=== PATIENT | female | born 1965 | race Two or more races ===

== ENCOUNTER 2018-01-29 18:37 | Inpatient (IN) | payer MEDICARE, OTHER ==
[~2018-01-29] VITALS: Ht 154.9 cm; Wt 104.5 kg
[~2018-01-29 18:37] MED LIST: ALBU18HF2 INH; ASPI-611 PO; ERGO500014 PO; FURO-150 PO; GLU850T PO; HYDR-4383 PO; POTA8CAP9 PO
[2018-01-29 19:07] LABS: BASOPHILS % (AUTO) 0 % (0-1); EOSINOPHILS # (AUTO) 0.1 X10'3 (0-0.9); EOSINOPHILS % (AUTO) 1.4 % (0-6); HEMATOCRIT 41.3 % (35.0-45.0); HEMOGLOBIN 13.8 g/dl (12.0-16.0); LYMPHOCYTES % (AUTO) 14.1 % (21-51); MEAN CORPUSCULAR HEMOGLOBIN 30.5 PG (27.0-31.0); MEAN CORPUSCULAR HGB CONC 33.5 % (33.0-36.5); MEAN PLATELET VOLUME 8.9 FL (7.4-10.4); MONOCYTES # (AUTO) 0.4 X10'3 (0-0.9); MONOCYTES % (AUTO) 6.4 % (2-12); NEUTROPHILS # (AUTO) 5.5 X10'3 (1.8-7.7); NEUTROPHILS % (AUTO) 78.1 % (42-75); PLATELET COUNT 239 X10'3 (140-440); RED BLOOD COUNT 4.54 X10'6 (4.20-5.60); RED CELL DISTRIBUTION WIDTH 13.1 % (11.5-14.5)
[2018-01-29] MEDS ORDERED: PER5325T PO (19:07)
[2018-01-29 19:23] LABS: ALANINE AMINOTRANSFERASE 58 U/L (12-78); ALBUMIN 3.1 G/DL (3.4-5.0); ALBUMIN/GLOBULIN RATIO 0.9 (1.1-1.5); ALKALINE PHOSPHATASE 134 IU/L (46-116); ANION GAP 8 (8-16); ASPARTATE AMINO TRANSFERASE 22 U/L (10-37); BILIRUBIN,TOTAL 0.4 MG/DL (0.1-1.0); BLOOD UREA NITROGEN 11 MG/DL (7-18); BUN/CREATININE RATIO 14.5 (6.6-38.0); CALCIUM 8.8 MG/DL (8.5-10.1); CHLORIDE 102 MMOL/L (99-107); CREATININE 0.76 MG/DL (0.40-0.90); GLUCOSE 445 MG/DL (70-104); POTASSIUM 3.9 MMOL/L (3.5-5.1); SODIUM 137 MMOL/L (135-145); TOTAL CARBON DIOXIDE 27.4 MMOL/L (24-32); TOTAL PROTEIN 6.7 G/DL (6.4-8.2); eGFR 79 ML/MIN
[2018-01-29 19:27] LABS: PROTHROMBIN TIME 10.9 SECONDS (9.0-12.0)
[2018-01-29 19:28] LABS: INR 1.1 INR; PARTIAL THROMBOPLASTIN TIME 25 SECONDS (22-32)
[2018-01-29] MEDS ORDERED: insulin regular, human 10 units/0.1 ml syringe IV ONE (20:15)
[2018-01-29] MEDS ORDERED: normal saline 1000ML IV soln IVB ONE (20:20)
[2018-01-29] MEDS ORDERED: LORazepam 1 MG tablet PO ONE (20:20)
[2018-01-29] MEDS ORDERED: iohexol 350MG/ML 100ml bottle IV ONE (20:38)
[2018-01-29] MEDS ORDERED: furosemide 10 MG/1 ML 10ml inj IV ONE (21:30)
[2018-01-29] MEDS ORDERED: HYDROcodone/acetaminophen 10/325mg tab PO PRN (21:55)
[2018-01-29] MEDS ORDERED: ondansetron/PF 4mg/2ml inj IV PRN (21:55)
[2018-01-29] MEDS ORDERED: acetaminophen 325mg tablet PO PRN (21:55)
[2018-01-29] MEDS ORDERED: dextrose 50%-water 50ml dispensing syringe IV PRN ×2 (21:55)
[2018-01-29] MEDS ORDERED: dextrose ORAL solution 15 GM/59 ML bottle PO PRN ×2 (21:55)
[2018-01-29] MEDS ORDERED: MESSAGE TO PHARMACY PO ONE (21:55)
[2018-01-29] MEDS ORDERED: glucagon, human recombinant 1mg kit SUBCUT PRN (21:55)
[2018-01-29] MEDS ORDERED: magnesium hydroxide 30ml (MOM) UD suspension PO PRN (21:55)
[2018-01-29] MEDS ORDERED: HYDROcodone/acetaminophen 5mg/325mg tablet PO PRN (21:55)
[2018-01-29] MEDS ORDERED: mag hydrox/Alum hydrox/simeth 30ml oral suspension PO PRN (21:55)
[2018-01-29] MEDS ORDERED: albuterol 2.5 MG/3 ML nebule NEB PRN (22:00)
[2018-01-29] MEDS ORDERED: oxyCODONE/APAP 5-325mg tablet PO PRN (22:00)
[2018-01-29 22:24] LABS: HEMOGLOBIN A1C 11.7 % (4.5-6.2)
[2018-01-29 23:00] VITALS: BP 119/82
[2018-01-30] MEDS: furosemide 10 MG/1 ML 10ml inj IV SCH ×2 (00:09→08:23)
[2018-01-30] MEDS ORDERED: pneumococcal 23-VAL P-sac vacc 25 mcg/0.5ml vial IMVAC ONE ×2 (00:55→11:00)
[2018-01-30 02:37] LABS: BASOPHILS % (AUTO) 0.1 % (0-1); EOSINOPHILS # (AUTO) 0.1 X10'3 (0-0.9); EOSINOPHILS % (AUTO) 1.6 % (0-6); HEMATOCRIT 42.5 % (35.0-45.0); LYMPHOCYTES # (AUTO) 0.9 X10'3 (1.1-4.8); LYMPHOCYTES % (AUTO) 10.3 % (21-51); MEAN CORPUSCULAR HEMOGLOBIN 30.4 PG (27.0-31.0); MEAN PLATELET VOLUME 9.1 FL (7.4-10.4); MONOCYTES # (AUTO) 0.3 X10'3 (0-0.9); MONOCYTES % (AUTO) 3.9 % (2-12); NEUTROPHILS # (AUTO) 7.2 X10'3 (1.8-7.7); NEUTROPHILS % (AUTO) 84.1 % (42-75); PLATELET COUNT 215 X10'3 (140-440); RED BLOOD COUNT 4.61 X10'6 (4.20-5.60); RED CELL DISTRIBUTION WIDTH 13.1 % (11.5-14.5); WHITE BLOOD COUNT 8.5 X10'3 (4.5-11.0)
[2018-01-30 02:59] LABS: ALANINE AMINOTRANSFERASE 68 U/L (12-78); ALBUMIN 3.4 G/DL (3.4-5.0); ALBUMIN/GLOBULIN RATIO 0.9 (1.1-1.5); ALKALINE PHOSPHATASE 138 IU/L (46-116); ANION GAP 8 (8-16); ASPARTATE AMINO TRANSFERASE 34 U/L (10-37); BILIRUBIN,TOTAL 0.4 MG/DL (0.1-1.0); BLOOD UREA NITROGEN 11 MG/DL (7-18); BUN/CREATININE RATIO 12.6 (6.6-38.0); CHLORIDE 99 MMOL/L (99-107); CREATININE 0.87 MG/DL (0.40-0.90); GLUCOSE 346 MG/DL (70-104); POTASSIUM 3.7 MMOL/L (3.5-5.1); SODIUM 138 MMOL/L (135-145); TOTAL CARBON DIOXIDE 30.6 MMOL/L (24-32); eGFR 68 ML/MIN
[2018-01-30] MEDS ORDERED: insulin Lispro (HumaLOG) vial - multi-dose SQ ONE (03:15)
[2018-01-30 07:00] VITALS: BP 119/74
[2018-01-30 07:47] VITALS: BP 112/71
[2018-01-30] MEDS ORDERED: lisinopril 2.5mg tablet PO SCH (08:00)
[2018-01-30] MEDS ORDERED: aspirin 81mg tablet.DR PO SCH (08:00)
[2018-01-30] MEDS ORDERED: heparin, porcine 5000 units/ml vial SQ SCH (08:00)
[2018-01-30] MEDS ORDERED: carvedilol 6.25mg tablet PO SCH (08:00)
[2018-01-30] MEDS: insulin Lispro (HumaLOG) vial - multi-dose SQ SCH ×2 (09:28→12:59)
[2018-01-30 09:32] LABS: URINE AMPHETAMINE SCREEN NEGATIVE (Neg); URINE BARBITUATE SCREEN NEGATIVE (Neg); URINE BENZODIAZEPINES SCREEN NEGATIVE (Neg); URINE CANNABINOID SCREEN NEGATIVE (Neg); URINE COCAINE SCREEN NEGATIVE (Neg); URINE METHADONE SCREEN NEGATIVE (Neg); URINE OPIATE SCREEN NEGATIVE (Neg); URINE PHENCYCLIDINE SCREEN NEGATIVE (Neg)
[2018-01-30] MEDS ORDERED: FLU VACC QUAD 2018(5 YR UP)/PF 60 MCG/0.5 ML SYRINGE IM ONE (10:00)
[2018-01-30] MEDS ORDERED: LISI2.5T2 PO (10:44)
[2018-01-30] MEDS ORDERED: CARV6.253 PO (10:44)
[2018-01-30] MEDS ORDERED: METF-950 PO (10:44)
[2018-01-30 11:00] VITALS: BP 94/48
[2018-01-30 12:47] VITALS: BP 113/72
[2018-01-30] MEDS ORDERED: insulin glargine (Lantus) pen - multi-dose SQ SCH (21:00)
== END 2018-01-30 13:18 | disposition home or self-care (01) | DRG 291 ==
LOC: ER 18:38 → ED HOLD 21:51 → EDBEDREQ 22:14 → SUR 3N 22:34
PROVIDERS: ADMIT Internal Medicine; ATTEND Internal Medicine
PROC: B32T1ZZ Computerized Tomography (CT Scan) of Left Pulmonary Artery using Low Osmolar Contrast (ICD-10-PCS; principal; 2018-01-29)
PROC: B3201ZZ Computerized Tomography (CT Scan) of Thoracic Aorta using Low Osmolar Contrast (ICD-10-PCS; 2018-01-29)
PROC: B32S1ZZ Computerized Tomography (CT Scan) of Right Pulmonary Artery using Low Osmolar Contrast (ICD-10-PCS; 2018-01-29)
PROC: 3E02340 Introduction of Influenza Vaccine into Muscle, Percutaneous Approach (ICD-10-PCS; 2018-01-30)
PROC: 3E0234Z Introduction of Serum, Toxoid and Vaccine into Muscle, Percutaneous Approach (ICD-10-PCS; 2018-01-30)
DX: I50.23 Acute on chronic systolic (congestive) heart failure (principal); J96.01 Acute respiratory failure with hypoxia; J98.11 Atelectasis; E11.65 Type 2 diabetes mellitus with hyperglycemia; I48.91 Unspecified atrial fibrillation; G47.30 Sleep apnea, unspecified; M54.9 Dorsalgia, unspecified; G89.4 Chronic pain syndrome; I25.10 Atherosclerotic heart disease of native coronary artery without angina pectoris; I25.5 Ischemic cardiomyopathy; Z90.710 Acquired absence of both cervix and uterus; Z23 Encounter for immunization; Z91.14 Patient's other noncompliance with medication regimen; Z88.8 Allergy status to other drugs, medicaments and biological substances; Z79.899 Other long term (current) drug therapy; Z79.82 Long term (current) use of aspirin
CPT/HCPCS: 36415; 71045; 80053; 80305; 82948; 83036; 83880; 84484; 85025; 85610; 85730; 87070; 90732; 93005; 93306; 96361; 96374; 96375; 99285; G0378; J1644; J1815; J1940; Q2037; Q9967

== ENCOUNTER 2018-05-08 07:10 | Inpatient (IN) | payer MEDICARE, OTHER | END 2018-05-12 13:40 | disposition home or self-care (01) | LOC: ER 07:10 → ED HOLD 10:14 → PCU 3S 17:43 | DX: L03.116 Cellulitis of left lower limb (principal); I50.23 Acute on chronic systolic (congestive) heart failure; J18.9 Pneumonia, unspecified organism; L03.115 Cellulitis of right lower limb; F15.10 Other stimulant abuse, uncomplicated ==

== ENCOUNTER 2018-05-25 06:14 | Emergency (ER) | payer MEDICARE, OTHER ==
[~2018-05-25] VITALS: Ht 154.9 cm; Wt 94.5 kg
[~2018-05-25 06:14] MED LIST changes: +COR3.125T PO; -ERGO500014 PO; -FURO-150 PO; +FURO40TA4 PO; +GABA-532 PO; -GLU850T PO; -HYDR-4383 PO; +LOSA50TA3 PO; +METF-951 PO; +PER5325T PO; +POTA20TA19 PO; -POTA8CAP9 PO; +SPIR25TA5 PO; +TRAM50TA2 PO
[2018-05-25] MEDS ORDERED: carvedilol 6.25mg tablet PO ONE (06:55)
[2018-05-25] MEDS ORDERED: carvedilol 6.25mg tablet PO SCH (06:55)
[2018-05-25 07:03] LABS: BASOPHILS # (AUTO) 0.1 X10'3 (0-0.2); BASOPHILS % (AUTO) 1.1 % (0-1); EOSINOPHILS # (AUTO) 0.2 X10'3 (0-0.9); EOSINOPHILS % (AUTO) 4.1 % (0-6); HEMATOCRIT 46.9 % (35.0-45.0); HEMOGLOBIN 15.7 g/dl (12.0-16.0); LYMPHOCYTES # (AUTO) 1.4 X10'3 (1.1-4.8); MEAN CORPUSCULAR HEMOGLOBIN 30.3 PG (27.0-31.0); MEAN CORPUSCULAR HGB CONC 33.4 g/dL (33.0-36.5); MEAN CORPUSCULAR VOLUME 90.6 FL (78-98); MEAN PLATELET VOLUME 8.6 FL (7.4-10.4); MONOCYTES # (AUTO) 0.4 X10'3 (0-0.9); MONOCYTES % (AUTO) 8.4 % (2-12); NEUTROPHILS # (AUTO) 3.1 X10'3 (1.8-7.7); NEUTROPHILS % (AUTO) 59.4 % (42-75); PLATELET COUNT 278 X10'3 (140-440); RED BLOOD COUNT 5.18 X10'6 (4.20-5.60); RED CELL DISTRIBUTION WIDTH 13.5 % (11.5-14.5); WHITE BLOOD COUNT 5.2 X10'3 (4.5-11.0)
[2018-05-25 07:17] LABS: ALANINE AMINOTRANSFERASE 54 U/L (12-78); ALBUMIN 3.5 G/DL (3.4-5.0); ALBUMIN/GLOBULIN RATIO 0.9 (1.1-1.5); ALKALINE PHOSPHATASE 100 IU/L (46-116); ANION GAP 10 (8-16); ASPARTATE AMINO TRANSFERASE 43 U/L (10-37); BILIRUBIN,TOTAL 0.5 MG/DL (0.1-1.0); BLOOD UREA NITROGEN 22 MG/DL (7-18); BUN/CREATININE RATIO 31.9 (6.6-38.0); CALCIUM 9.6 MG/DL (8.5-10.1); CHLORIDE 99 MMOL/L (99-107); CREATININE 0.69 MG/DL (0.40-0.90); GLUCOSE 394 MG/DL (70-104); POTASSIUM 4.3 MMOL/L (3.5-5.1); SODIUM 135 MMOL/L (135-145); TOTAL CARBON DIOXIDE 25.8 MMOL/L (24-32); TOTAL PROTEIN 7.5 G/DL (6.4-8.2); eGFR 89 ML/MIN
[2018-05-25 07:26] LABS: PARTIAL THROMBOPLASTIN TIME 26 SECONDS (22-32); PROTHROMBIN TIME 9.9 SECONDS (9.0-12.0)
[2018-05-25] MEDS ORDERED: insulin regular, human 10 units/0.1 ml syringe SQ ONE (08:05)
[2018-05-25] MEDS ORDERED: naproxen 500mg tablet PO ONE (08:05)
[2018-05-25] MEDS ORDERED: traMADol 50MG tablet PO ONE (08:45)
[2018-05-25 08:55] VITALS: BP 112/69
== END 2018-05-25 08:57 | disposition home or self-care (01) ==
LOC: ER 06:14
DX: I11.0 Hypertensive heart disease with heart failure (principal); I50.9 Heart failure, unspecified; R07.89 Other chest pain; R11.0 Nausea; R20.0 Anesthesia of skin; R42 Dizziness and giddiness; R06.02 Shortness of breath; R50.9 Fever, unspecified; E11.9 Type 2 diabetes mellitus without complications; G89.29 Other chronic pain; M54.9 Dorsalgia, unspecified; F15.90 Other stimulant use, unspecified, uncomplicated; Z90.710 Acquired absence of both cervix and uterus; Z79.82 Long term (current) use of aspirin; Z88.1 Allergy status to other antibiotic agents; Z88.8 Allergy status to other drugs, medicaments and biological substances
CPT/HCPCS: 36415; 71045; 80053; 83880; 84484; 85025; 85610; 85730; 93005; 96372; 99284; J1815

== ENCOUNTER 2018-05-31 00:57 | Emergency (ER) | payer MEDICARE ==
[~2018-05-31] VITALS: Ht 154.9 cm; Wt 101.6 kg
[2018-05-31] MEDS ORDERED: aspirin 81mg tab.chew PO ONE (01:00)
[2018-05-31 01:07] VITALS: BP 132/89
[2018-05-31] MEDS ORDERED: normal saline 1000ML IV soln IVB ONE (01:15)
[2018-05-31] MEDS ORDERED: mag hydrox/Alum hydrox/simeth 30ml oral suspension PO ONE (01:15)
[2018-05-31] MEDS ORDERED: ondansetron/PF 4mg/2ml inj IV ONE (01:15)
[2018-05-31 01:34] LABS: BASOPHILS # (AUTO) 0.1 X10'3 (0-0.2); BASOPHILS % (AUTO) 0.8 % (0-1); EOSINOPHILS # (AUTO) 0.1 X10'3 (0-0.9); EOSINOPHILS % (AUTO) 1.7 % (0-6); HEMATOCRIT 48.6 % (35.0-45.0); HEMOGLOBIN 15.9 g/dl (12.0-16.0); LYMPHOCYTES # (AUTO) 1.7 X10'3 (1.1-4.8); LYMPHOCYTES % (AUTO) 23.1 % (21-51); MEAN CORPUSCULAR HEMOGLOBIN 29.5 PG (27.0-31.0); MEAN CORPUSCULAR HGB CONC 32.6 g/dL (33.0-36.5); MEAN CORPUSCULAR VOLUME 90.4 FL (78-98); MEAN PLATELET VOLUME 8.7 FL (7.4-10.4); MONOCYTES # (AUTO) 0.6 X10'3 (0-0.9); MONOCYTES % (AUTO) 8.5 % (2-12); NEUTROPHILS # (AUTO) 4.9 X10'3 (1.8-7.7); NEUTROPHILS % (AUTO) 65.9 % (42-75); PLATELET COUNT 287 X10'3 (140-440); RED BLOOD COUNT 5.38 X10'6 (4.20-5.60); RED CELL DISTRIBUTION WIDTH 13.6 % (11.5-14.5); WHITE BLOOD COUNT 7.4 X10'3 (4.5-11.0)
[2018-05-31 01:50] LABS: ALANINE AMINOTRANSFERASE 46 U/L (12-78); ALBUMIN 3.8 G/DL (3.4-5.0); ALBUMIN/GLOBULIN RATIO 0.9 (1.1-1.5); ALKALINE PHOSPHATASE 98 IU/L (46-116); ANION GAP 11 (8-16); ASPARTATE AMINO TRANSFERASE 25 U/L (10-37); BILIRUBIN,TOTAL 0.4 MG/DL (0.1-1.0); BLOOD UREA NITROGEN 28 MG/DL (7-18); BUN/CREATININE RATIO 29.8 (6.6-38.0); CALCIUM 10.1 MG/DL (8.5-10.1); CHLORIDE 102 MMOL/L (99-107); CREATININE 0.94 MG/DL (0.40-0.90); GLUCOSE 217 MG/DL (70-104); POTASSIUM 4.3 MMOL/L (3.5-5.1); SODIUM 138 MMOL/L (135-145); TOTAL PROTEIN 7.9 G/DL (6.4-8.2); eGFR 62 ML/MIN
[2018-05-31 01:57] LABS: MAGNESIUM 1.5 MG/DL (1.5-2.4)
== END 2018-05-31 02:53 | disposition home or self-care (01) ==
LOC: ER 00:57
DX: E86.0 Dehydration (principal); I50.9 Heart failure, unspecified; E11.9 Type 2 diabetes mellitus without complications; G89.29 Other chronic pain; M54.9 Dorsalgia, unspecified; Z90.710 Acquired absence of both cervix and uterus; F15.90 Other stimulant use, unspecified, uncomplicated; Z88.1 Allergy status to other antibiotic agents; Z88.8 Allergy status to other drugs, medicaments and biological substances; Z79.82 Long term (current) use of aspirin
CPT/HCPCS: 36415; 71045; 80053; 83735; 83880; 84484; 85025; 93005; 96361; 96374; 99284; J2405; J7030

== ENCOUNTER 2018-06-02 00:25 | Emergency (ER) | payer MEDICARE ==
[~2018-06-02] VITALS: Ht 154.9 cm; Wt 93.0 kg
[2018-06-02 00:27] VITALS: BP 142/90
[2018-06-02] MEDS ORDERED: carVEDilol 3.125mg tablet PO SCH ×2 (00:50→02:20)
[2018-06-02] MEDS ORDERED: LORazepam 0.5 MG tablet PO PRN (00:50)
[2018-06-02 01:16] LABS: BASOPHILS # (AUTO) 0.1 X10'3 (0-0.2); BASOPHILS % (AUTO) 0.8 % (0-1); EOSINOPHILS # (AUTO) 0.1 X10'3 (0-0.9); EOSINOPHILS % (AUTO) 2.1 % (0-6); HEMATOCRIT 43.5 % (35.0-45.0); HEMOGLOBIN 14.3 g/dl (12.0-16.0); LYMPHOCYTES # (AUTO) 1.2 X10'3 (1.1-4.8); LYMPHOCYTES % (AUTO) 18.8 % (21-51); MEAN CORPUSCULAR HEMOGLOBIN 29.5 PG (27.0-31.0); MEAN CORPUSCULAR HGB CONC 32.9 g/dL (33.0-36.5); MEAN CORPUSCULAR VOLUME 89.8 FL (78-98); MEAN PLATELET VOLUME 8.7 FL (7.4-10.4); MONOCYTES # (AUTO) 0.5 X10'3 (0-0.9); MONOCYTES % (AUTO) 7.7 % (2-12); NEUTROPHILS # (AUTO) 4.7 X10'3 (1.8-7.7); NEUTROPHILS % (AUTO) 70.6 % (42-75); PLATELET COUNT 229 X10'3 (140-440); RED BLOOD COUNT 4.85 X10'6 (4.20-5.60); RED CELL DISTRIBUTION WIDTH 13.4 % (11.5-14.5); WHITE BLOOD COUNT 6.6 X10'3 (4.5-11.0)
[2018-06-02 01:35] LABS: ALANINE AMINOTRANSFERASE 32 U/L (12-78); ALBUMIN 3.4 G/DL (3.4-5.0); ALBUMIN/GLOBULIN RATIO 0.9 (1.1-1.5); ALKALINE PHOSPHATASE 87 IU/L (46-116); ANION GAP 8 (8-16); ASPARTATE AMINO TRANSFERASE 19 U/L (10-37); BILIRUBIN,TOTAL 0.3 MG/DL (0.1-1.0); BLOOD UREA NITROGEN 25 MG/DL (7-18); BUN/CREATININE RATIO 33.8 (6.6-38.0); CALCIUM 9.5 MG/DL (8.5-10.1); CHLORIDE 102 MMOL/L (99-107); CREATININE 0.74 MG/DL (0.40-0.90); ETHANOL < 0.010 GM/DL (0.0-0.010); GLUCOSE 320 MG/DL (70-104); POTASSIUM 4.6 MMOL/L (3.5-5.1); SODIUM 136 MMOL/L (135-145); TOTAL CARBON DIOXIDE 26.4 MMOL/L (24-32); TOTAL PROTEIN 7.1 G/DL (6.4-8.2); eGFR 82 ML/MIN
[2018-06-02 01:38] LABS: PROTHROMBIN TIME 10.2 SECONDS (9.0-12.0)
[2018-06-02 01:39] LABS: PARTIAL THROMBOPLASTIN TIME 26 SECONDS (22-32)
[2018-06-02] MEDS ORDERED: insulin regular, human 10 units/0.1 ml syringe IV ONE (02:20)
== END 2018-06-02 03:08 | disposition home or self-care (01) ==
LOC: ER 00:26
DX: I42.0 Dilated cardiomyopathy (principal); R07.9 Chest pain, unspecified; I50.9 Heart failure, unspecified; G47.30 Sleep apnea, unspecified; E11.9 Type 2 diabetes mellitus without complications; G89.29 Other chronic pain; F15.10 Other stimulant abuse, uncomplicated; Z90.710 Acquired absence of both cervix and uterus; Z88.1 Allergy status to other antibiotic agents; Z88.8 Allergy status to other drugs, medicaments and biological substances; Z79.82 Long term (current) use of aspirin; Z79.84 Long term (current) use of oral hypoglycemic drugs; Z79.899 Other long term (current) drug therapy
CPT/HCPCS: 36415; 71045; 80053; 80320; 83880; 84484; 85025; 85610; 85730; 96374; 99284; J1815

== ENCOUNTER 2018-06-20 00:06 | Emergency (ER) | payer MEDICARE ==
[~2018-06-20] VITALS: Ht 154.9 cm; Wt 100.0 kg
[~2018-06-20 00:06] MED LIST changes: -FURO40TA4 PO; -POTA20TA19 PO; -TRAM50TA2 PO
[2018-06-20] MEDS ORDERED: aspirin 81mg tab.chew PO ONE (00:10)
[2018-06-20] MEDS ORDERED: ondansetron/PF 4mg/2ml inj IV ONE (00:25)
[2018-06-20] MEDS ORDERED: morphine 4 MG/ML inj SYRINge IV ONE (00:25)
[2018-06-20 00:37] LABS: BASOPHILS # (AUTO) 0.1 X10'3 (0-0.2); BASOPHILS % (AUTO) 0.8 % (0-1); EOSINOPHILS # (AUTO) 0.1 X10'3 (0-0.9); EOSINOPHILS % (AUTO) 1.7 % (0-6); HEMATOCRIT 44.1 % (35.0-45.0); HEMOGLOBIN 14.6 g/dl (12.0-16.0); LYMPHOCYTES # (AUTO) 1.8 X10'3 (1.1-4.8); MEAN CORPUSCULAR HEMOGLOBIN 29.5 PG (27.0-31.0); MEAN CORPUSCULAR VOLUME 89.4 FL (78-98); MEAN PLATELET VOLUME 8.2 FL (7.4-10.4); MONOCYTES # (AUTO) 0.7 X10'3 (0-0.9); MONOCYTES % (AUTO) 7.6 % (2-12); NEUTROPHILS # (AUTO) 6.1 X10'3 (1.8-7.7); NEUTROPHILS % (AUTO) 69.9 % (42-75); PLATELET COUNT 252 X10'3 (140-440); RED BLOOD COUNT 4.93 X10'6 (4.20-5.60); RED CELL DISTRIBUTION WIDTH 13.6 % (11.5-14.5); WHITE BLOOD COUNT 8.8 X10'3 (4.5-11.0)
[2018-06-20 01:07] LABS: ALANINE AMINOTRANSFERASE 32 U/L (12-78); ALBUMIN 3.6 G/DL (3.4-5.0); ALBUMIN/GLOBULIN RATIO 0.9 (1.1-1.5); ALKALINE PHOSPHATASE 99 IU/L (46-116); ANION GAP 11 (8-16); ASPARTATE AMINO TRANSFERASE 16 U/L (10-37); BILIRUBIN,TOTAL 0.3 MG/DL (0.1-1.0); BLOOD UREA NITROGEN 30 MG/DL (7-18); BUN/CREATININE RATIO 40.5 (6.6-38.0); CHLORIDE 103 MMOL/L (99-107); CREATININE 0.74 MG/DL (0.40-0.90); GLUCOSE 214 MG/DL (70-104); POTASSIUM 4.4 MMOL/L (3.5-5.1); SODIUM 138 MMOL/L (135-145); TOTAL CARBON DIOXIDE 24.1 MMOL/L (24-32); TOTAL PROTEIN 7.7 G/DL (6.4-8.2); eGFR 82 ML/MIN
[2018-06-20 01:13] LABS: MAGNESIUM 1.8 MG/DL (1.5-2.4)
[2018-06-20] MEDS ORDERED: LIDOcaine Viscous 15ml cup PO ONE (01:30)
[2018-06-20] MEDS ORDERED: mag hydrox/Alum hydrox/simeth 30ml oral suspension PO ONE (01:30)
--- NOTE | 2018-06-20 01:52 | NUR ---
Patient was complaining of persistant pain that was sharp and burning despite morphine administration. Spoke to Dr. Flowers and order for maalox and viscous lidocaine given. Patient was given medication combo and is now sleeping comfortably. See orders/emar for times.
--- NOTE | 2018-06-20 02:03 | NUR ---
Patient is sleeping in bed with no signs of discomfort.
[2018-06-20] MEDS ORDERED: ketorolac trometh. 30mg/ml inj. IV ONE (02:25)
--- NOTE | 2018-06-20 02:38 | NUR ---
Patient complains of persisting pain. Order for toradol obtained from Dr. Flowers. As I am giving the toradol, the patient is laughing and joking with me. Her vital signs are within normal limits and the patient displays no visible signs of pain.
[2018-06-20 03:22] VITALS: BP 103/60
== END 2018-06-20 03:24 | disposition home or self-care (01) ==
LOC: ER 00:07
DX: R07.9 Chest pain, unspecified (principal); I50.9 Heart failure, unspecified; G47.30 Sleep apnea, unspecified; E11.9 Type 2 diabetes mellitus without complications; G89.29 Other chronic pain; F15.90 Other stimulant use, unspecified, uncomplicated; Z90.710 Acquired absence of both cervix and uterus; Z98.890 Other specified postprocedural states; Z88.1 Allergy status to other antibiotic agents; Z88.8 Allergy status to other drugs, medicaments and biological substances; Z79.82 Long term (current) use of aspirin; Z79.84 Long term (current) use of oral hypoglycemic drugs; Z79.899 Other long term (current) drug therapy
CPT/HCPCS: 36415; 71045; 80053; 83735; 83880; 84484; 85025; 93005; 96374; 96375; 99284; J1885; J2270; J2405

== ENCOUNTER 2018-06-26 03:14 | Emergency (ER) | payer MEDICARE ==
[~2018-06-26] VITALS: Ht 157.5 cm; Wt 90.0 kg
[2018-06-26 05:56] LABS: BASOPHILS % (AUTO) 0.5 % (0-1); EOSINOPHILS # (AUTO) 0.1 X10'3 (0-0.9); EOSINOPHILS % (AUTO) 1.3 % (0-6); HEMATOCRIT 38.2 % (35.0-45.0); HEMOGLOBIN 12.8 g/dl (12.0-16.0); LYMPHOCYTES % (AUTO) 12.4 % (21-51); MEAN CORPUSCULAR HEMOGLOBIN 29.8 PG (27.0-31.0); MEAN CORPUSCULAR HGB CONC 33.5 g/dL (33.0-36.5); MEAN CORPUSCULAR VOLUME 89.2 FL (78-98); MEAN PLATELET VOLUME 8.2 FL (7.4-10.4); MONOCYTES # (AUTO) 0.8 X10'3 (0-0.9); MONOCYTES % (AUTO) 9.4 % (2-12); NEUTROPHILS # (AUTO) 6.3 X10'3 (1.8-7.7); NEUTROPHILS % (AUTO) 76.4 % (42-75); PLATELET COUNT 246 X10'3 (140-440); RED BLOOD COUNT 4.28 X10'6 (4.20-5.60); WHITE BLOOD COUNT 8.3 X10'3 (4.5-11.0)
[2018-06-26 06:12] LABS: ALANINE AMINOTRANSFERASE 31 U/L (12-78); ALBUMIN 3.3 G/DL (3.4-5.0); ALBUMIN/GLOBULIN RATIO 0.9 (1.1-1.5); ALKALINE PHOSPHATASE 90 IU/L (46-116); ANION GAP 9 (8-16); ASPARTATE AMINO TRANSFERASE 20 U/L (10-37); BILIRUBIN,TOTAL 0.2 MG/DL (0.1-1.0); BLOOD UREA NITROGEN 29 MG/DL (7-18); BUN/CREATININE RATIO 33.7 (6.6-38.0); CALCIUM 9.7 MG/DL (8.5-10.1); CHLORIDE 105 MMOL/L (99-107); CREATININE 0.86 MG/DL (0.40-0.90); GLUCOSE 222 MG/DL (70-104); POTASSIUM 3.9 MMOL/L (3.5-5.1); SODIUM 139 MMOL/L (135-145); eGFR 69 ML/MIN
[2018-06-26] MEDS ORDERED: POTA-84 PO (06:12)
[2018-06-26] MEDS ORDERED: FURO-149 PO (06:12)
[2018-06-26] MEDS ORDERED: METF500T PO (06:12)
[2018-06-26 06:21] LABS: ETHANOL < 0.010 GM/DL (0.0-0.010)
[2018-06-26] MEDS ORDERED: CARV-50 PO (06:35)
[2018-06-26] MEDS: metFORMIN 500mg tablet PO SCH ×2 (08:31→17:07)
[2018-06-26] MEDS: gabapentin 300mg capsule PO SCH ×3 (08:31→21:03)
[2018-06-26] MEDS: potassium Cl 20 mEq SR tablet PO SCH (08:31)
[2018-06-26] MEDS: carVEDilol 3.125mg tablet PO SCH ×2 (08:31→21:03)
[2018-06-26] MEDS: furosemide 40mg tablet PO SCH (08:31)
[2018-06-26 09:59] LABS: URINE HCG NEGATIVE (NEG)
[2018-06-26 10:11] LABS: URINE AMPHETAMINE SCREEN NEGATIVE (Neg); URINE BARBITUATE SCREEN NEGATIVE (Neg); URINE BENZODIAZEPINES SCREEN NEGATIVE (Neg); URINE CANNABINOID SCREEN NEGATIVE (Neg); URINE COCAINE SCREEN NEGATIVE (Neg); URINE METHADONE SCREEN NEGATIVE (Neg); URINE OPIATE SCREEN NEGATIVE (Neg); URINE PHENCYCLIDINE SCREEN NEGATIVE (Neg)
--- NOTE | 2018-06-26 11:23 | NUR ---
Pt complaining of sharp CP with increased pain with inspiration. Pt with CHF and EF 24% per pt. Pt sweaty and distraught. VS 129/80, 64, 98% RA. EKG performed and results to Dr. Perez. pt states she has a lot on her plate with workman's comp case. 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 Pt states she has ADHD and medications have the opposite effect on her.
[2018-06-26] MEDS ORDERED: nitroGLYCERIN 0.4mg SUBLingual tab SL PRN (11:25)
[2018-06-26] MEDS ORDERED: aspirin 325mg tablet PO ONE (11:25)
--- NOTE | 2018-06-26 11:26 | NUR ---
Dr. Perez at bedside assessing pt.
--- NOTE | 2018-06-26 11:27 | NUR ---
Dr. Perez will order ativan for pt.
[2018-06-26] MEDS ORDERED: LORazepam 1 MG tablet PO ONE (11:30)
--- NOTE | 2018-06-26 12:17 | NUR ---
relieving RN for lunch, pt is resting quietly on bed
[2018-06-26] MEDS ORDERED: furosemide 40mg tablet PO ONE (14:00)
--- NOTE | 2018-06-26 14:21 | NUR ---
Dr Pearce assessed pt and feels she does not need any meds at this time./ Pt told him that she only has a year to live with her CHF. Pt told Dr. Pearce that she needed time she has a lot going on.
[2018-06-26] MEDS ORDERED: ibuprofen 200mg tablet PO ONE (16:55)
--- NOTE | 2018-06-26 16:59 | NUR ---
pt complaining of back pain and requesting Tramadol. this is what she use to take but is between doctors and is not currently taking anything for the pain.
--- NOTE | 2018-06-26 18:04 | NUR ---
spouse visiting pt
--- NOTE | 2018-06-26 19:00 | NUR ---
The patient is resting on her bed and appears calm. No s/s of distress noted.
--- NOTE | 2018-06-26 21:26 | NUR ---
The patient has been resting on her bed. She has been cheerful and had a bright affect. She is socializing with the patient in the bed next to her. She stated that she has been sleeping a lot during the day. She is denying that she is suicidal and states that she wants to live.
--- NOTE | 2018-06-26 21:50 | NUR ---
The patient appears to be sleeping at this time
--- NOTE | 2018-06-26 23:56 | NUR ---
The patient appears to be sleeping
--- NOTE | 2018-06-27 01:44 | NUR ---
The patient appears to be sleeping
--- NOTE | 2018-06-27 03:56 | NUR ---
The patient appears to be sleeping
--- NOTE | 2018-06-27 05:14 | NUR ---
The patient appears to be asleep
[2018-06-27 05:54] VITALS: BP 110/59
--- NOTE | 2018-06-27 06:34 | NUR ---
Assumed Care: Pt appears to be sleeping. RR even and unlabored.
[2018-06-27] MEDS: metFORMIN 500mg tablet PO SCH (07:47)
[2018-06-27] MEDS: potassium Cl 20 mEq SR tablet PO SCH (07:47)
[2018-06-27] MEDS: gabapentin 300mg capsule PO SCH (07:47)
[2018-06-27] MEDS: furosemide 40mg tablet PO SCH (07:47)
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
[2018-06-27] MEDS: carVEDilol 3.125mg tablet PO SCH (08:00)
--- NOTE | 2018-06-27 08:10 | NUR ---
Pt continues to sleep unable to wake to evaluate further on her pain level. RR even and unlabored.
[2018-06-27] MEDS ORDERED: traMADol 50MG tablet PO PRN (09:40)
--- NOTE | 2018-06-27 10:05 | NUR ---
Pt continues to sleep on her left side. RR even and unlabored.
--- NOTE | 2018-06-27 12:30 | NUR ---
Her is here visiting. Pt is requesting for her to take both her wallet and phone cord home. SAMANTHA Mcdonald will get the belongings and give to the w/signature from pt.
--- NOTE | 2018-06-27 13:45 | NUR ---
Pt discharged. All personal belongings out w/her and security and staff from [facility]. Property signed out per SAMANTHA Mcdonald. Report off to nurse, ALDAIR Morales.
[2018-06-27] MEDS ORDERED: CARV3.126 PO (16:53)
[2018-06-27] MEDS ORDERED: TRAM50TA2 PO (16:53)
== END 2018-06-27 13:45 ==
LOC: ER 03:14
DX: R45.851 Suicidal ideations (principal); I50.9 Heart failure, unspecified; E11.9 Type 2 diabetes mellitus without complications; G89.29 Other chronic pain; F15.90 Other stimulant use, unspecified, uncomplicated; Z90.710 Acquired absence of both cervix and uterus; Z98.890 Other specified postprocedural states; Z85.89 Personal history of malignant neoplasm of other organs and systems; Z88.1 Allergy status to other antibiotic agents; Z88.8 Allergy status to other drugs, medicaments and biological substances; Z79.82 Long term (current) use of aspirin; Z79.84 Long term (current) use of oral hypoglycemic drugs; Z79.899 Other long term (current) drug therapy
CPT/HCPCS: 36415; 80053; 80305; 80320; 81025; 82948; 83880; 84443; 84484; 85025; 93005; 99285

== ENCOUNTER 2018-06-27 13:40 | Inpatient (IN) | payer MEDICARE | END 2018-06-27 18:00 | disposition home or self-care (01) | LOC: ADULT MH 13:40 ==

== ENCOUNTER 2018-09-16 12:37 | Emergency (ER) | payer MEDICARE, OTHER ==
[~2018-09-16] VITALS: Ht 154.9 cm; Wt 102.3 kg
[~2018-09-16 12:37] MED LIST changes: -ALBU18HF2 INH; -ASPI-611 PO; +CARV3.126 PO; -COR3.125T PO; +FURO-149 PO; -LOSA50TA3 PO; -METF-951 PO; +METF500T PO; -PER5325T PO; +POTA-84 PO; -SPIR25TA5 PO; +TRAM50TA2 PO
[2018-09-16] MEDS ORDERED: ondansetron/PF 4mg/2ml inj IV ONE (12:55)
[2018-09-16] MEDS ORDERED: morphine 4 MG/ML inj SYRINge IV ONE (12:55)
[2018-09-16 13:03] LABS: BASOPHILS # (AUTO) 0.1 X10'3 (0-0.2); BASOPHILS % (AUTO) 0.9 % (0-1); EOSINOPHILS # (AUTO) 0.2 X10'3 (0-0.9); EOSINOPHILS % (AUTO) 3.7 % (0-6); HEMATOCRIT 34.9 % (35.0-45.0); HEMOGLOBIN 11.9 g/dl (12.0-16.0); LYMPHOCYTES # (AUTO) 1.1 X10'3 (1.1-4.8); MEAN CORPUSCULAR HEMOGLOBIN 32.1 PG (27.0-31.0); MEAN CORPUSCULAR HGB CONC 34.1 g/dL (33.0-36.5); MEAN CORPUSCULAR VOLUME 94.4 FL (78-98); MEAN PLATELET VOLUME 8.5 FL (7.4-10.4); MONOCYTES # (AUTO) 0.6 X10'3 (0-0.9); MONOCYTES % (AUTO) 9.1 % (2-12); NEUTROPHILS # (AUTO) 4.2 X10'3 (1.8-7.7); NEUTROPHILS % (AUTO) 68.3 % (42-75); PLATELET COUNT 219 X10'3 (140-440); RED CELL DISTRIBUTION WIDTH 12.8 % (11.5-14.5); WHITE BLOOD COUNT 6.1 X10'3 (4.5-11.0)
[2018-09-16 13:16] LABS: ALANINE AMINOTRANSFERASE 32 U/L (12-78); ALBUMIN/GLOBULIN RATIO 0.9 (1.1-1.5); ALKALINE PHOSPHATASE 80 IU/L (46-116); ANION GAP 10 (8-16); ASPARTATE AMINO TRANSFERASE 16 U/L (10-37); BILIRUBIN,TOTAL 0.3 MG/DL (0.1-1.0); BLOOD UREA NITROGEN 18 MG/DL (7-18); BUN/CREATININE RATIO 33.3 (6.6-38.0); CALCIUM 7.7 MG/DL (8.5-10.1); CHLORIDE 106 MMOL/L (99-107); CREATININE 0.54 MG/DL (0.40-0.90); GLUCOSE 274 MG/DL (70-104); POTASSIUM 3.8 MMOL/L (3.5-5.1); SODIUM 140 MMOL/L (135-145); TOTAL CARBON DIOXIDE 23.8 MMOL/L (24-32); TOTAL PROTEIN 6.5 G/DL (6.4-8.2); eGFR > 90 ML/MIN
[2018-09-16 13:43] LABS: PARTIAL THROMBOPLASTIN TIME 26 SECONDS (22-32)
[2018-09-16] MEDS ORDERED: mag hydrox/Alum hydrox/simeth 30ml oral suspension PO ONE (14:35)
[2018-09-16] MEDS ORDERED: LIDOcaine Viscous 15ml cup PO ONE (14:35)
[2018-09-16] MEDS ORDERED: famotidine 20mg tablet PO ONE (14:35)
[2018-09-16 16:03] VITALS: BP 163/85
== END 2018-09-16 16:44 | disposition home or self-care (01) ==
LOC: ER 12:38
DX: R07.89 Other chest pain (principal); I50.9 Heart failure, unspecified; G47.30 Sleep apnea, unspecified; E11.9 Type 2 diabetes mellitus without complications; G89.29 Other chronic pain; F15.90 Other stimulant use, unspecified, uncomplicated; Z90.710 Acquired absence of both cervix and uterus; Z98.890 Other specified postprocedural states; Z88.1 Allergy status to other antibiotic agents; Z88.8 Allergy status to other drugs, medicaments and biological substances; Z79.84 Long term (current) use of oral hypoglycemic drugs; Z79.899 Other long term (current) drug therapy
CPT/HCPCS: 36415; 71045; 80053; 83880; 84484; 85025; 85610; 85730; 93005; 96374; 96375; 99284; J2270; J2405